=== PATIENT | female | born 1935 | race Caucasian/White ===

== ENCOUNTER 2016-10-20 18:23 | Inpatient (IN) | payer OTHER ==
[~2016-10-20] VITALS: Ht 167.6 cm; Wt 65.8 kg
[~2016-10-20 18:23] MED LIST: AMOXICILLIN875 MG PO; ARICEPT 5 MG TAB5 MG PO; ASPIR 8181 MG PO; CARVEDILOL12.5 MG PO; CELEBREX 200 M200 MG PO; CLOPIDOGREL75 MG PO; COUMADIN 1MG TAB1 M1 PO; COZAAR 50 MG TA50 M2 PO; EXFORGE 10-1601 EACH PO; LANOXIN 0.120.125 M1; LEVOTHYROXIN0.125 M1 PO; LEVOTHYROXINE 0.1 MG PO; LIPITOR 20 MG T20 M1 PO; NAMENDA 10 MG T10 MG PO; NEOMYCIN-POLY-7.5 ML OP; PACERONE 200 M200 M1 PO; TRAZODONE HCL50 MG PO; ULTRAM 50MG TAB50 MG PO; WELLBUTRIN XL300 MG PO; ZETIA10 MG PO
[2016-10-20 18:24] VITALS: BP 172/120
[2016-10-20 19:35] VITALS: BP 114/79
[2016-10-20 21:10] VITALS: BP 152/74
[2016-10-20 21:32] LABS: ABSOLUTE NEUTROPHILS 10.8 thou/uL (1.4-8.2); BASOPHILS 0.6 % (0.0-2.0); EOSINOPHILS 0.6 % (0.0-3.0); HEMATOCRIT 40.7 % (37.0-47.0); HEMOGLOBIN 13.8 gm/dL (12.0-15.0); LYMPHOCYTES 8.6 % (24.0-44.0); MCH 30.4 pg (26.0-34.0); MCV 89.4 fL (80.0-100.0); MONOCYTES 4.8 % (1.0-8.0); PLATELET COUNT 249 thou/uL (150-400); POLYS 85.4 % (36.0-66.0); RBC 4.56 mil/uL (4.20-5.00); WBC 12.7 thou/uL (4.0-11.0)
[2016-10-20 21:33] LABS: MANUAL DIFF NO
[2016-10-20 21:49] LABS: ALKALINE PHOSPHATASE 64 U/L (46-116); ANION GAP 11 mmol/L (7-16); BUN 23 mg/dL (7-18); CALCIUM 8.6 mg/dL (8.5-10.1); CHLORIDE 101 mmol/L (98-107); CO2 29 mmol/L (21-32); CREATININE 1.3 mg/dL (0.6-1.0); GLUCOSE 117 mg/dL (74-106); POTASSIUM 3.7 mmol/L (3.5-5.1); SGOT 40 U/L (15-37); SGPT 53 U/L (30-65); SODIUM 141 mmol/L (136-145); TOTAL BILIRUBIN 0.5 mg/dL (<0.1-1.0); TOTAL PROTEIN 7.5 g/dL (6.4-8.2); TROPONIN-I < 0.04 ng/mL (<0.04-0.07)
[2016-10-21] MEDS ORDERED: PACERONE200 MG PO (01:10)
[2016-10-21] MEDS ORDERED: PACERONE 200 M200 M1 PO (01:49)
[2016-10-21] MEDS ORDERED: ASPIR 8181 MG PO (01:51)
[2016-10-21] MEDS ORDERED: LIPITOR 20 MG T20 M1 PO (01:54)
[2016-10-21] MEDS ORDERED: PLAVIX 75 MG TA75 M1 PO (01:57)
[2016-10-21] MEDS ORDERED: LEVOTHYROXIN0.125 M1 PO (02:00)
[2016-10-21] MEDS ORDERED: COZAAR 50 MG TA50 M2 PO (02:02)
[2016-10-21] MEDS ORDERED: NAMENDA 10 MG T10 MG PO (02:04)
[2016-10-21] MEDS ORDERED: TRAZODONE HCL50 MG PO (02:08)
[2016-10-21] MEDS ORDERED: BYSTOLIC 5 MG5 M1 PO (02:12)
[2016-10-21] MEDS ORDERED: VITAMIN D2000 UNIT PO (02:13)
[2016-10-21 03:40] VITALS: BP 132/68
[2016-10-21 07:47] VITALS: BP 150/79
[2016-10-21 16:41] VITALS: BP 153/81
[2016-10-21 20:00] VITALS: BP 155/73
[2016-10-22 04:00] VITALS: BP 126/75
[2016-10-22 04:41] LABS: URINE BILIRUBIN NEGATIVE (Negative); URINE BLOOD 2+ (Negative); URINE COLOR YELLOW; URINE GLUCOSE-RANDOM* NEGATIVE (Negative); URINE KETONES NEGATIVE (Negative); URINE LEUKOCYTES-REFLEX NEGATIVE (Negative); URINE PROTEIN (DIPSTICK) NEGATIVE (Negative); URINE UROBILINOGEN 0.2 E.U./dl (0.2-1.0)
[2016-10-22 04:48] LABS: CASTS None Seen /LPF (None Seen); SQUAMOUS None Seen /LPF (0-3); URINE RBC 0-2 Rare /HPF (0-2); URINE WBC-REFLEX 0-5 Rare /HPF (0-5)
[2016-10-22 04:49] LABS: CRYSTALS None Seen /LPF (None Seen)
[2016-10-22 06:58] LABS: ALBUMIN 3.1 g/dL (3.4-5.0); CALCIUM 7.7 mg/dL (8.5-10.1); PHOSPHORUS 3.3 mg/dL (2.5-4.9); POTASSIUM 3.3 mmol/L (3.5-5.1)
[2016-10-22 08:55] VITALS: BP 123/68
[2016-10-22 15:39] VITALS: BP 113/60
[2016-10-22 20:00] VITALS: BP 138/64
[2016-10-23 04:00] VITALS: BP 145/77
[2016-10-23 07:28] VITALS: BP 151/81
[2016-10-23] MEDS ORDERED: HYDROCODON-ACE1 EAC7 PO (10:09)
[2016-10-23] MEDS ORDERED: ACETAMINOPHEN325 M1 PO (10:10)
[2016-10-23] MEDS ORDERED: COLACE 100 MG100 MG PO (10:10)
[2016-10-23 16:13] VITALS: BP 143/72
== END 2016-10-23 19:45 | DRG 535 ==
LOC: ER 18:23 → EROBS 20:34 → 5S 20:34
PROVIDERS: Hospitalist; Nurse Practitioner
DX: S32.591A Other specified fracture of right pubis, initial encounter for closed fracture (principal); N17.0 Acute kidney failure with tubular necrosis; I42.9 Cardiomyopathy, unspecified; I48.91 Unspecified atrial fibrillation; F03.90 Unspecified dementia, unspecified severity, without behavioral disturbance, psychotic disturbance, mood disturbance, and anxiety; I10 Essential (primary) hypertension; K59.00 Constipation, unspecified; E87.6 Hypokalemia; E03.9 Hypothyroidism, unspecified; N28.9 Disorder of kidney and ureter, unspecified; E78.5 Hyperlipidemia, unspecified; I25.10 Atherosclerotic heart disease of native coronary artery without angina pectoris; I95.9 Hypotension, unspecified; Z96.653 Presence of artificial knee joint, bilateral; Z88.5 Allergy status to narcotic agent; Z88.1 Allergy status to other antibiotic agents; Z86.718 Personal history of other venous thrombosis and embolism; Z87.440 Personal history of urinary (tract) infections; Z98.61 Coronary angioplasty status; I25.2 Old myocardial infarction; W18.39XA Other fall on same level, initial encounter; Y93.89 Activity, other specified; Y92.89 Other specified places as the place of occurrence of the external cause; Y99.8 Other external cause status
CPT/HCPCS: 10086

== ENCOUNTER 2016-12-03 14:52 | Emergency (ER) | payer OTHER ==
[~2016-12-03] VITALS: Ht 167.6 cm; Wt 65.8 kg
--- NOTE | ~2016-12-03 | EKG ---
[address] [address] [facility] [place] [address] ELECTROCARDIOGRAM REPORT Name: PATRICIA STAUFFER [id number] Admission: 12/03/16 Attend Phys: Discharge: Date of : 31 Report #: [id number] THIS REPORT FOR: //name// [facility] ED Test Date: 2016-12-03 Test Time: 16:30:12 Pat Name: PATRICIA STAUFFER Department: Room: Gender: F Billing And Insurance Coordinator: mayco : 1935 Requested By: Cecilia Patel Order Number: [id number] MD: Erik Pappas Measurements Intervals [place] Rate: 51 P: 72 GA: 178 QRS: 15 QRSD: 109 T: -22 QT: 432 QTc: 398 Interpretive Statements Sinus rhythm Probable left atrial enlargement Borderline repolarization abnormality Compared to ECG 06/07/2016 14:01:38 No significant changes Electronically Signed On 12-03-2016 17:17:08 CDT by Erik Pappas [email or web address] <ELECTRONICALLY SIGNED> By: Erik Pappas MD 12/03/16 1717 1630 1630 Erik Pappas MD /VIKRAM
[~2016-12-03 14:52] MED LIST changes: +ACETAMINOPHEN325 M1 PO; +BYSTOLIC 5 MG5 M1 PO; +COLACE 100 MG100 MG PO; +HYDROCODON-ACE1 EAC7 PO; +PACERONE200 MG PO; +PLAVIX 75 MG TA75 M1 PO; +VITAMIN D2000 UNIT PO
[2016-12-03 16:01] LABS: URINE BILIRUBIN NEGATIVE (Negative); URINE BLOOD TRACE (Negative); URINE COLOR YELLOW; URINE GLUCOSE-RANDOM* NEGATIVE (Negative); URINE KETONES NEGATIVE (Negative); URINE LEUKOCYTES-REFLEX 2+ (Negative); URINE PROTEIN (DIPSTICK) NEGATIVE (Negative); URINE UROBILINOGEN 0.2 E.U./dl (0.2-1.0)
[2016-12-03 16:02] LABS: ABSOLUTE NEUTROPHILS 3.5 thou/uL (1.4-8.2); BASOPHILS 0.7 % (0.0-2.0); EOSINOPHILS 0.8 % (0.0-3.0); HEMATOCRIT 38.6 % (37.0-47.0); HEMOGLOBIN 13.2 gm/dL (12.0-15.0); MCH 30.9 pg (26.0-34.0); MCHC 34.1 g/dL (28.0-37.0); MCV 90.4 fL (80.0-100.0); MONOCYTES 9.3 % (1.0-8.0); PLATELET COUNT 274 thou/uL (150-400); POLYS 67.2 % (36.0-66.0); RBC 4.27 mil/uL (4.20-5.00); RDW 14.9 % (10.5-14.5); WBC 5.3 thou/uL (4.0-11.0)
[2016-12-03 16:05] LABS: MANUAL DIFF NO
[2016-12-03 16:11] LABS: ANION GAP 9 mmol/L (7-16); BUN 17 mg/dL (7-18); CALCIUM 8.4 mg/dL (8.5-10.1); CHLORIDE 103 mmol/L (98-107); CO2 29 mmol/L (21-32); CREATININE 1.3 mg/dL (0.6-1.0); GLUCOSE 80 mg/dL (74-106); POTASSIUM 3.6 mmol/L (3.5-5.1); SODIUM 141 mmol/L (136-145)
[2016-12-03 16:12] LABS: SQUAMOUS 0-3 Few /LPF (0-3)
[2016-12-03 16:13] LABS: CASTS None Seen /LPF (None Seen); URINE RBC 0-2 Rare /HPF (0-2); URINE WBC-REFLEX 6-15 Few /HPF (0-5)
[2016-12-03 16:14] LABS: CRYSTALS None Seen /LPF (None Seen)
[2016-12-03 16:19] LABS: TROPONIN-I < 0.04 ng/mL (<0.04-0.07)
[2016-12-03] MEDS ORDERED: CIPROFLOXACIN500 M1 PO (16:25)
== END 2016-12-03 18:06 | disposition home or self-care (01) ==
LOC: ER 14:52
PROVIDERS: Emergency Medicine
DX: N39.0 Urinary tract infection, site not specified (principal); I10 Essential (primary) hypertension; I48.91 Unspecified atrial fibrillation; E03.9 Hypothyroidism, unspecified; F32.9 Major depressive disorder, single episode, unspecified; F03.90 Unspecified dementia, unspecified severity, without behavioral disturbance, psychotic disturbance, mood disturbance, and anxiety; Z96.653 Presence of artificial knee joint, bilateral; Z86.718 Personal history of other venous thrombosis and embolism; Z90.89 Acquired absence of other organs; Z87.440 Personal history of urinary (tract) infections; Z95.5 Presence of coronary angioplasty implant and graft; Z88.1 Allergy status to other antibiotic agents; Z88.5 Allergy status to narcotic agent

== ENCOUNTER 2016-12-11 18:03 | Emergency (ER) | payer OTHER ==
[~2016-12-11] VITALS: Ht 167.6 cm; Wt 59.0 kg
--- NOTE | ~2016-12-11 | EKG ---
[address] [facility] [address] ELECTROCARDIOGRAM REPORT Name: PATRICIA STAUFFER [facility]: [facility] [id number] Admission: 12/11/16 Attend Phys: Discharge: 12/11/16 Date of : 31 Report #: [id number] THIS REPORT FOR: //name// [facility] ED Test Date: 2016-12-11 Test Time: 18:36:03 Pat Name: PATRICIA STAUFFER Department: Room: Gender: F Mine Manager: UMM : 1935 Requested By: Luis Eduardo Wooten Order Number: [id number] MD: Reji Trimble Measurements Intervals [place] Rate: 52 P: 66 TX: 190 QRS: 25 QRSD: 119 T: 43 QT: 690 QTc: 642 Interpretive Statements Sinus rhythm Probable left atrial enlargement Nonspecific intraventricular conduction delay Compared to ECG 12/03/2016 16:30:12 No significant change was found Electronically Signed On 12-12-2016 8:26:23 CDT by Reji Trimble [email or web address] <ELECTRONICALLY SIGNED> By: Reji Trimble MD, [facility] 12/12/16 0826 35 35 Reji Trimble MD, [facility] /EPI
[~2016-12-11 18:03] MED LIST changes: +CIPROFLOXACIN500 M1 PO
[2016-12-11 18:49] LABS: ABSOLUTE NEUTROPHILS 2.9 thou/uL (1.4-8.2); BASOPHILS 1.2 % (0.0-2.0); EOSINOPHILS 1.3 % (0.0-3.0); HEMATOCRIT 35.9 % (37.0-47.0); HEMOGLOBIN 12.5 gm/dL (12.0-15.0); LYMPHOCYTES 27.6 % (24.0-44.0); MANUAL DIFF NO; MCH 31.5 pg (26.0-34.0); MCHC 34.7 g/dL (28.0-37.0); MCV 90.7 fL (80.0-100.0); MONOCYTES 9.1 % (1.0-8.0); PLATELET COUNT 241 thou/uL (150-400); POLYS 60.8 % (36.0-66.0); RBC 3.96 mil/uL (4.20-5.00); RDW 14.5 % (10.5-14.5); WBC 4.8 thou/uL (4.0-11.0)
[2016-12-11 18:56] LABS: ANION GAP 7 mmol/L (7-16); BUN 18 mg/dL (7-18); CALCIUM 8.3 mg/dL (8.5-10.1); CHLORIDE 101 mmol/L (98-107); CO2 27 mmol/L (21-32); CREATININE 1.3 mg/dL (0.6-1.0); GLUCOSE 101 mg/dL (74-106); POTASSIUM 4.5 mmol/L (3.5-5.1); SODIUM 135 mmol/L (136-145)
[2016-12-11 19:04] LABS: TROPONIN-I < 0.04 ng/mL (<0.04-0.07)
[2016-12-11 19:07] LABS: URINE BILIRUBIN NEGATIVE (Negative); URINE BLOOD NEGATIVE (Negative); URINE COLOR YELLOW; URINE GLUCOSE-RANDOM* NEGATIVE (Negative); URINE KETONES NEGATIVE (Negative); URINE NITRITE NEGATIVE (Negative); URINE PROTEIN (DIPSTICK) NEGATIVE (Negative); URINE UROBILINOGEN 0.2 E.U./dl (0.2-1.0)
== END 2016-12-11 22:00 | disposition home or self-care (01) ==
LOC: ER 18:03
PROVIDERS: Nurse Practitioner
DX: R53.1 Weakness (principal); I10 Essential (primary) hypertension; I48.91 Unspecified atrial fibrillation; E03.9 Hypothyroidism, unspecified; F32.9 Major depressive disorder, single episode, unspecified; F03.90 Unspecified dementia, unspecified severity, without behavioral disturbance, psychotic disturbance, mood disturbance, and anxiety; Z90.89 Acquired absence of other organs; Z96.653 Presence of artificial knee joint, bilateral; Z86.718 Personal history of other venous thrombosis and embolism; Z87.440 Personal history of urinary (tract) infections; Z88.1 Allergy status to other antibiotic agents; Z88.5 Allergy status to narcotic agent; W18.30XA Fall on same level, unspecified, initial encounter; Y93.89 Activity, other specified; Y92.89 Other specified places as the place of occurrence of the external cause; Y99.8 Other external cause status

== ENCOUNTER 2017-07-04 19:19 | Emergency (ER) | payer OTHER ==
[~2017-07-04] VITALS: Ht 167.6 cm; Wt 61.2 kg
[2017-07-04] MEDS ORDERED: SYNTHROID112 MCG PO (19:34)
[2017-07-04] MEDS ORDERED: MELATONIN3 MG PO (19:34)
[2017-07-04 20:37] VITALS: BP 188/98
== END 2017-07-04 21:22 | disposition home or self-care (01) ==
LOC: ER 19:19
DX: S09.8XXA Other specified injuries of head, initial encounter (principal); I10 Essential (primary) hypertension; I48.91 Unspecified atrial fibrillation; E03.9 Hypothyroidism, unspecified; F32.9 Major depressive disorder, single episode, unspecified; F03.90 Unspecified dementia, unspecified severity, without behavioral disturbance, psychotic disturbance, mood disturbance, and anxiety; Z86.718 Personal history of other venous thrombosis and embolism; Z90.89 Acquired absence of other organs; Z87.440 Personal history of urinary (tract) infections; Z88.1 Allergy status to other antibiotic agents; Z88.5 Allergy status to narcotic agent; Z96.653 Presence of artificial knee joint, bilateral; W18.39XA Other fall on same level, initial encounter; Y93.89 Activity, other specified; Y92.89 Other specified places as the place of occurrence of the external cause; Y99.8 Other external cause status

== ENCOUNTER 2017-09-18 18:29 | Emergency (ER) | payer OTHER ==
[~2017-09-18] VITALS: Ht 167.6 cm; Wt 56.7 kg
[~2017-09-18 18:29] MED LIST changes: +MELATONIN3 MG PO; +SYNTHROID112 MCG PO
[2017-09-18 19:15] LABS: URINE BILIRUBIN NEGATIVE (Negative); URINE BLOOD TRACE (Negative); URINE CLARITY CLEAR; URINE COLOR YELLOW; URINE GLUCOSE-RANDOM* NEGATIVE (Negative); URINE KETONES NEGATIVE (Negative); URINE PROTEIN (DIPSTICK) NEGATIVE (Negative); URINE UROBILINOGEN 0.2 E.U./dl (0.2-1.0)
[2017-09-18 19:18] LABS: URINE LEUKOCYTES-REFLEX TRACE (Negative); URINE NITRITE-REFLEX POSITIVE (Negative)
[2017-09-18 19:31] LABS: MUCUS 0-3 Light strn/LPF (None Seen); SQUAMOUS 4-10 Moderate /LPF (0-3); URINE RBC None Seen /HPF (0-2); URINE WBC-REFLEX 6-15 Few /HPF (0-5)
[2017-09-18 19:32] LABS: AMORPHOUS URATES Few /LPF (None Seen); BACTERIA-REFLEX 1-9 Few /HPF (None Seen); HYALINE CASTS 4-10 Moderate /LPF (None Seen)
[2017-09-18] MEDS ORDERED: CIPRO500 MG PO (19:41)
[2017-09-18] MEDS ORDERED: MACROBID 100 M100 M1 PO (19:42)
[2017-09-18 20:21] VITALS: BP 168/91
== END 2017-09-18 20:33 | disposition home or self-care (01) ==
LOC: ER 18:29
PROVIDERS: Physician Assistant
DX: S51.802A Unspecified open wound of left forearm, initial encounter (principal); I10 Essential (primary) hypertension; I48.91 Unspecified atrial fibrillation; E03.9 Hypothyroidism, unspecified; Z88.1 Allergy status to other antibiotic agents; Z88.5 Allergy status to narcotic agent; W19.XXXA Unspecified fall, initial encounter; Y93.89 Activity, other specified; Y92.89 Other specified places as the place of occurrence of the external cause; Y99.8 Other external cause status

== ENCOUNTER 2018-03-26 19:15 | Emergency (ER) | payer OTHER ==
[~2018-03-26] VITALS: Ht 167.6 cm; Wt 56.7 kg
--- NOTE | ~2018-03-26 | EKG ---
[address] [address] ELECTROCARDIOGRAM REPORT Name: PATRICIA STAUFFER [facility] [id number] Admission: 03/26/18 Attend Phys: Discharge: 03/26/18 Date of : 31 Report #: [id number] THIS REPORT FOR: //name// [facility] ED Test Date: 2018-03-26 Test Time: 19:41:37 Pat Name: PATRICIA STAUFFER Department: Room: Gender: F Brick Loader: DEEP : 1935 Requested By: Karla Nguyễn Order Number: [id number] MD: Erik Pappas Measurements Intervals [place] Rate: 60 P: 70 SD: 176 QRS: -12 QRSD: 118 T: 85 QT: 516 QTc: 516 Interpretive Statements Sinus rhythm Probable left atrial enlargement Nonspecific intraventricular conduction delay Nonspecific T abnormalities, lateral leads Compared to ECG 12/11/2016 18:36:03 Electronically Signed On 03-30-2018 17:05:06 CDT by Erik Pappas [email or web address] <ELECTRONICALLY SIGNED> By: Erik Pappas MD 03/30/18 170 40 40 Erik Pappas MD /VIKRAM
[~2018-03-26 19:15] MED LIST changes: +CIPRO500 MG PO; +MACROBID 100 M100 M1 PO
[2018-03-26 19:50] LABS: ABSOLUTE NEUTROPHILS 3.9 thou/uL (1.4-8.2); EOSINOPHILS 1.1 % (0.0-3.0); HEMATOCRIT 40.8 % (37.0-47.0); LYMPHOCYTES 20.2 % (24.0-44.0); MCHC 34.4 g/dL (28.0-37.0); MCV 90.3 fL (80.0-100.0); MONOCYTES 7.5 % (1.0-8.0); PLATELET COUNT 280 thou/uL (150-400); POLYS 70.2 % (36.0-66.0); RBC 4.51 mil/uL (4.20-5.00); RDW 13.2 % (10.5-14.5); WBC 5.5 thou/uL (4.0-11.0)
[2018-03-26 20:01] LABS: ANION GAP 6 mmol/L (7-16); BUN 22 mg/dL (7-18); CHLORIDE 102 mmol/L (98-107); CO2 29 mmol/L (21-32); CREATININE 1.4 mg/dL (0.6-1.0); GLUCOSE 107 mg/dL (74-106); POTASSIUM 3.8 mmol/L (3.5-5.1); SODIUM 137 mmol/L (136-145)
[2018-03-26 20:06] LABS: TROPONIN-I <0.06 ng/mL (<0.06)
[2018-03-26 20:20] LABS: URINE BILIRUBIN NEGATIVE (Negative); URINE BLOOD TRACE (Negative); URINE CLARITY CLEAR; URINE COLOR YELLOW; URINE GLUCOSE-RANDOM* NEGATIVE (Negative); URINE KETONES NEGATIVE (Negative); URINE LEUKOCYTES NEGATIVE (Negative); URINE NITRITE NEGATIVE (Negative); URINE PROTEIN (DIPSTICK) NEGATIVE (Negative); URINE UROBILINOGEN 0.2 E.U./dl (0.2-1.0)
== END 2018-03-26 21:34 ==
LOC: ER 19:15
PROVIDERS: Student in an Organized Health Care Education/Training Program
DX: I10 Essential (primary) hypertension (principal); I48.91 Unspecified atrial fibrillation; E03.9 Hypothyroidism, unspecified; F32.9 Major depressive disorder, single episode, unspecified; F03.90 Unspecified dementia, unspecified severity, without behavioral disturbance, psychotic disturbance, mood disturbance, and anxiety; Z95.5 Presence of coronary angioplasty implant and graft; Z88.1 Allergy status to other antibiotic agents; Z96.653 Presence of artificial knee joint, bilateral; Z86.718 Personal history of other venous thrombosis and embolism; Z90.89 Acquired absence of other organs; Z88.5 Allergy status to narcotic agent

== ENCOUNTER 2018-06-04 20:28 | Inpatient (IN) | payer OTHER ==
[~2018-06-04] VITALS: Ht 167.6 cm; Wt 67.1 kg
--- NOTE | ~2018-06-04 | EKG ---
[address] [address] ELECTROCARDIOGRAM REPORT Name: PATRICIA STAUFFER Room #: 216-P ADM IN M.R.#: [id number] Admission: 06/04/18 Attend Phys: Miki Rodriguez MD Discharge: Date of : 31 Report #: [id number] THIS REPORT FOR: //name// [facility] ED Test Date: 2018-06-04 Test Time: 20:57:58 Pat Name: PATRICIA STAUFFER Department: Room: 216 Gender: F Airborne Electronics Analyst: Kimberly PENNINGTON : 1935 Requested By: Balbir Orlando Order Number: [id number] MD: Erik Pappas Measurements Intervals [place] Rate: 58 P: 42 DE: 197 QRS: -8 QRSD: 126 T: 70 QT: 554 QTc: 545 Interpretive Statements Sinus rhythm Probable left atrial enlargement Nonspecific intraventricular conduction delay Compared to ECG 03/26/2018 19:41:37 Electronically Signed On 06-05-2018 8:02:43 ABSORPTION PLANT OPERATOR HELPER by Erik Pappas [email or web address] <ELECTRONICALLY SIGNED> By: Erik Pappas MD 11/801 56 56 MD JULIANO Celaya
--- NOTE | ~2018-06-04 | EEG ---
[facility] [place] [address] ELECTROENCEPHALOGRAM Name: PATRICIA STAUFFER Room #: 216-P ADM IN M.R.#: [id number] Admission: 06/04/18 Attend Phys: Miki Rodriguez MD Discharge: Date of : 31 Report #: [id number] THIS REPORT FOR: //name// CC: Arin Rodriguez DATE OF SERVICE: 06/06/2018 DESCRIPTION: This patient is being evaluated for altered mental status. EEG was done by placing the electrodes by standard 10-20 system of electrode placement. Background activity on the right side is up to about 8-9 Hz and 30 microvolts. It is asymmetrical activity at least intermittently. The patient goes to sleep that is associated with bilaterally symmetrical sleep spindle and vertex sharp waves. The patient appeared to be showing some sharper activity arising from the left cerebral hemisphere. IMPRESSION: This patient's EEG demonstrates asymmetrical activity, which is intermittent and is also intermixed with some sharper activity coming from the left cerebral hemisphere. There is a nonspecific abnormality, but a left hemispheric lesion including the one which can cause a seizure should be excluded. Thank you very much for this referral. By: 1331 1440 Kareem Haynes MD /nt
--- NOTE | ~2018-06-04 | HC ---
[facility] [place] [address] CONSULTATION Name: PATRICIA STAUFFER Room #: 216-P ADM IN M.R.#: [id number] Admission: 06/04/18 Attend Phys: Miki Rodriguez MD Discharge: Date of : 31 Report #: [id number] THIS REPORT FOR: //name// CC: Arin Rodriguez DATE OF SERVICE: 06/05/2018 HISTORY OF PRESENT ILLNESS: This is an 83-year-old female patient who was evaluated by me for any neurological etiology for the patient's syncope and TIA. History is pretty complicated in this patient, looks like she was admitted with left-sided weakness, for which no cause was found. She underwent an MRI of the brain, which does not show any stroke, but other history is that her blood pressure has been elevated. Her blood pressure medication has been readjusted. She has history of hypotension and bradycardia as I understand from the notes. To me, she moves very poorly and she indicates she has used walker for some time. She indicated that is for several years. I do not know whether that history is correct or not. REVIEW OF SYSTEMS: Indicates history of atrial fibrillation, hypertension, dementia, but to me she knows what hospital she is in. She talks very softly. She has a history of hypothyroid. She has a history of DVT, she had a history of cardiac stent, she has bilateral knee replacement. She is on donepezil and Namenda, so I suspect she carries the diagnosis of dementia. I do not know if she is being followed by a neurologist. This was her relevant 14-point review of systems. PAST MEDICAL HISTORY: Positive for dementia. FAMILY HISTORY: Negative for early age stroke. SOCIAL HISTORY: Records indicate she lives in a prison unit. PHYSICAL EXAMINATION: NEUROLOGY: Indicates her voice is very soft. It is very difficult to understand her. She has multiple bruises on her face. She is not complaining of any spine pain. She knows what hospital she is in. She could not get the month right. Cranial nerve examination 2-12 looks mostly unremarkable. She moves all four extremities, but lower extremities, she is quite weak. Upper extremity, she moves better, but she said she has been like this for long time and used walker for a long time. She said she can appreciate the position sense. Her reflexes are diminished, but symmetrical in all 4 extremities. I tried to look at the fundus, she could not cooperate. EXTREMITIES: Pulses are somewhat difficult to feel. She has no edema, cyanosis or jaundice. She has multiple bruises on the face. CARDIAC: Indicates irregular heart. [facility] [address] [place] [address] CONSULTATION Name: PATRICIA STAUFFER Room #: 216-[facility] IN M.R.#: [id number] Admission: 06/04/18 Attend Phys: Miki Rodriguez MD Discharge: Date of : 31 Report #: [id number] RESPIRATORY: Does not appear to be showing any respiratory difficulty. VITAL SIGNS: Her blood pressure is 158/103, respirations 16, pulse is 75, and temperature is 98.7. She does not have much documented hypotension here. LABORATORY DATA: Her hemoglobin is 6.1. Her potassium is 3.0. IMAGING DATA: CT scan shows old stroke, but no new stroke. IMPRESSION: This patient most likely has multiple problems. Neurologically, it looks like that she had prior stroke, but no new stroke. So the episode may have been transient ischemic attack or a non-convulsive seizure from the prior stroke. I will get an electroencephalogram done and a carotid Doppler done, but even more likely cause for her symptom will be cardiac, either because of hypotension or bradycardia or combination. She has numerous bruises on the face. She does move her legs very well. She may have spine problem also, but she said it is going on for several years. No spine physician comes here and she has fallen down. I will go ahead and order a CT of the spine. The question need to be addressed how aggressive to be in this patient because this patient will require a pretty extensive workup if we need to do full workup in this patient. I will discuss this patient with you tomorrow. We will do some basic blood workup, but as mentioned above, there is extensive amount of pathology, which can cause the problems and the family needs to decide how aggressive to be in this patient. Thank you very much for this referral and if you have any question, please feel free to contact me. By: 1838 2236 Kareem Haynes MD /nt
[2018-06-04 20:28] VITALS: BP 143/93
[2018-06-04] MEDS ORDERED: COREG6.25 MG PO (20:34)
[2018-06-04] MEDS ORDERED: ELIQUIS2.5 MG PO (20:34)
[2018-06-04] MEDS ORDERED: NAMENDA 10 MG T10 MG PO (20:36)
[2018-06-04] MEDS ORDERED: MELATONIN3 MG PO (20:36)
[2018-06-04] MEDS ORDERED: MACRODANTIN100 MG PO (20:36)
[2018-06-04] MEDS ORDERED: TRIPLE ANTIBIO1 EAC1 TOP (20:42)
[2018-06-04] MEDS ORDERED: THERACRAN650 MG PO (20:42)
[2018-06-04 20:43] LABS: ABSOLUTE NEUTROPHILS 4.7 thou/uL (1.4-8.2); EOSINOPHILS 0.9 % (0.0-3.0); HEMATOCRIT 36.9 % (37.0-47.0); HEMOGLOBIN 12.8 gm/dL (12.0-15.0); LYMPHOCYTES 16.7 % (24.0-44.0); MCH 31.5 pg (26.0-34.0); MCHC 34.7 g/dL (28.0-37.0); MCV 90.9 fL (80.0-100.0); MONOCYTES 4.5 % (1.0-8.0); PLATELET COUNT 255 thou/uL (150-400); POLYS 76.9 % (36.0-66.0); RBC 4.06 mil/uL (4.20-5.00); RDW 14.5 % (10.5-14.5); WBC 6.1 thou/uL (4.0-11.0)
[2018-06-04] MEDS ORDERED: TROSPIUM CHLORI20 MG PO (20:43)
[2018-06-04 20:57] LABS: APTT 30.7 Seconds (24.5-32.8); INR 1.4
[2018-06-04 21:00] LABS: ANION GAP 12 mmol/L (7-16); BUN 27 mg/dL (7-18); CALCIUM 8.9 mg/dL (8.5-10.1); CHLORIDE 102 mmol/L (98-107); CO2 25 mmol/L (21-32); CREATININE 1.4 mg/dL (0.6-1.0); GLUCOSE 109 mg/dL (74-106); POTASSIUM 3.5 mmol/L (3.5-5.1); SODIUM 139 mmol/L (136-145)
[2018-06-04 21:29] LABS: ALBUMIN 3.5 g/dL (3.4-5.0); MAGNESIUM 2.4 mg/dL (1.8-2.4); SGOT 25 U/L (15-37); SGPT 28 U/L (30-65); TOTAL BILIRUBIN 0.4 mg/dL (<0.1-1.0); TOTAL PROTEIN 6.7 g/dL (6.4-8.2); TROPONIN-I <0.06 ng/mL (<0.06)
[2018-06-04 21:50] LABS: URINE BILIRUBIN NEGATIVE (Negative); URINE BLOOD TRACE (Negative); URINE CLARITY CLEAR; URINE COLOR YELLOW; URINE GLUCOSE-RANDOM* NEGATIVE (Negative); URINE KETONES NEGATIVE (Negative); URINE LEUKOCYTES-REFLEX TRACE (Negative); URINE NITRITE-REFLEX NEGATIVE (Negative); URINE PROTEIN (DIPSTICK) NEGATIVE (Negative); URINE UROBILINOGEN 0.2 E.U./dl (0.2-1.0)
[2018-06-04 21:59] LABS: AMP/METHAMP Negative (Negative); BARBITURATES Negative (Negative); BENZODIAZEPINES Negative (Negative); COCAINE Negative (Negative); METHADONE Negative (Negative); OPIATES Negative (Negative); PCP Negative (Negative)
[2018-06-04 22:30] VITALS: BP 132/75
[2018-06-04 23:17] VITALS: BP 156/109
[2018-06-05] VITALS (9 sets, daily range): BP systolic 124–189; BP diastolic 64–111
[2018-06-05 03:20] LABS: CALCIUM 8.9 mg/dL (8.5-10.1); CREATININE 1.2 mg/dL (0.6-1.0)
[2018-06-06] VITALS (8 sets, daily range): BP systolic 115–171; BP diastolic 68–101
[2018-06-07] VITALS (9 sets, daily range): BP systolic 115–155; BP diastolic 66–166
[2018-06-07 05:35] LABS: CALCIUM 8.5 mg/dL (8.5-10.1); CREATININE 1.1 mg/dL (0.6-1.0); MAGNESIUM 2.1 mg/dL (1.8-2.4); POTASSIUM 3.5 mmol/L (3.5-5.1)
[2018-06-07] MEDS ORDERED: TRAMADOL 50 MG50 MG PO (12:48)
[2018-06-07] MEDS ORDERED: KEPPRA750 MG PO (12:48)
[2018-06-07] MEDS ORDERED: COZAAR 50 MG TA50 M1 PO (12:48)
[2018-06-08] VITALS (7 sets, daily range): BP systolic 118–163; BP diastolic 72–111
[2018-06-09 02:03] LABS: URINE BILIRUBIN NEGATIVE (Negative); URINE BLOOD 1+ (Negative); URINE CLARITY CLEAR; URINE COLOR YELLOW; URINE GLUCOSE-RANDOM* NEGATIVE (Negative); URINE KETONES NEGATIVE (Negative); URINE LEUKOCYTES-REFLEX NEGATIVE (Negative); URINE NITRITE-REFLEX NEGATIVE (Negative); URINE PROTEIN (DIPSTICK) NEGATIVE (Negative); URINE SPECIFIC GRAVITY 1.025 (1.005-1.035); URINE UROBILINOGEN 0.2 E.U./dl (0.2-1.0)
[2018-06-09 02:09] LABS: CASTS None Seen /LPF (None Seen); SQUAMOUS None Seen /LPF (0-3)
[2018-06-09 02:10] LABS: BACTERIA-REFLEX >30 Many /HPF (None Seen); CRYSTALS None Seen /LPF (None Seen); URINE WBC-REFLEX 0-5 Rare /HPF (0-5)
[2018-06-09 02:14] LABS: URINE RBC 0-2 Rare /HPF (0-2)
[2018-06-09 04:49] VITALS: BP 145/79
[2018-06-09 07:41] VITALS: BP 146/97
[2018-06-09 08:16] VITALS: BP 146/97
== END 2018-06-09 16:13 | DRG 69 ==
LOC: ER 20:28 → 2N 22:07 → EROBS 22:07 → 2N 22:30
PROVIDERS: Emergency Medicine; Internal Medicine; Nurse Practitioner Acute Care
DX: G45.9 Transient cerebral ischemic attack, unspecified (principal); N39.0 Urinary tract infection, site not specified; I13.0 Hypertensive heart and chronic kidney disease with heart failure and stage 1 through stage 4 chronic kidney disease, or unspecified chronic kidney disease; Z96.653 Presence of artificial knee joint, bilateral; E03.9 Hypothyroidism, unspecified; F32.9 Major depressive disorder, single episode, unspecified; F03.90 Unspecified dementia, unspecified severity, without behavioral disturbance, psychotic disturbance, mood disturbance, and anxiety; I95.89 Other hypotension; R00.1 Bradycardia, unspecified; N18.3 Chronic kidney disease, stage 3 (moderate); I25.10 Atherosclerotic heart disease of native coronary artery without angina pectoris; I50.9 Heart failure, unspecified; R29.6 Repeated falls; N32.81 Overactive bladder; G31.9 Degenerative disease of nervous system, unspecified; I48.0 Paroxysmal atrial fibrillation; G40.909 Epilepsy, unspecified, not intractable, without status epilepticus; Z60.2 Problems related to living alone; K59.00 Constipation, unspecified; B96.1 Klebsiella pneumoniae [K. pneumoniae] as the cause of diseases classified elsewhere; Z86.718 Personal history of other venous thrombosis and embolism; Z95.5 Presence of coronary angioplasty implant and graft; Z88.6 Allergy status to analgesic agent; Z88.8 Allergy status to other drugs, medicaments and biological substances; Z79.82 Long term (current) use of aspirin; Z79.899 Other long term (current) drug therapy; Z79.01 Long term (current) use of anticoagulants
CPT/HCPCS: 10081